=== PATIENT | female | born 1970 | race Caucasian/White ===

== ENCOUNTER 2019-05-09 10:07 | Emergency (ER) | payer MEDICARE ==
[~2019-05-09] VITALS: Ht 160 cm; Wt 52.3 kg
[~2019-05-09 10:07] MED LIST: NAPR-56 PO; OLAN10TA3 PO; ZIPR20CA2 PO
[2019-05-09 10:23] VITALS: BP 137/83
== END 2019-05-09 10:48 | disposition left against medical advice (07) ==
LOC: ER 10:08
DX: F20.9 Schizophrenia, unspecified (principal); F31.9 Bipolar disorder, unspecified; F12.90 Cannabis use, unspecified, uncomplicated; Z53.21 Procedure and treatment not carried out due to patient leaving prior to being seen by health care provider; Z59.0 Homelessness; Z60.2 Problems related to living alone; Z79.899 Other long term (current) drug therapy

== ENCOUNTER 2019-05-22 18:39 | Emergency (ER) | payer MEDICARE | END 2019-05-22 19:27 | disposition left against medical advice (07) | LOC: ER 18:40 | DX: G43.909 Migraine, unspecified, not intractable, without status migrainosus (principal); Z53.21 Procedure and treatment not carried out due to patient leaving prior to being seen by health care provider ==